=== PATIENT | female | born 1965 | race Caucasian/White ===

== ENCOUNTER 2019-10-22 06:41 | Observation (INO) ==
[2019-10-22] MEDS ORDERED: ASPIRIN PO ONE (06:56)
[2019-10-22] MEDS ORDERED: NITROGLYCERIN TOP ONE (07:23)
--- NOTE | 2019-10-22 07:28 | Diag Imaging Result Doc PS360 ---
CHEST-2 VIEWS - 10/22/2019 INDICATION: cp COMPARISON: 05/23/2017 FINDINGS: Stable densely calcified granulomas in the left upper lobe and left hilum. The lungs are clear. Heart size is normal. No pneumothorax or pleural effusion. IMPRESSION: Negative exam. Electronically signed by Nick Castrejon 10/22/2019 7:25 AM
--- NOTE | 2019-10-22 07:39 | EKG Report ---
Test Performed on : 10/22/2019 06:44:35 AM Test Reason : cp, htn Blood Pressure : / mmHG Vent. Rate : 068 BPM Atrial Rate : 068 BPM P-R Int : 142 ms QRS Dur : 084 ms QT Int : 404 ms P-R-T Axes : 044 002 -01 degrees QTc Int : 429 ms Normal sinus rhythm. Cannot rule out Anterior infarct , age undetermined Abnormal ECG When compared with ECG of 23-MAY-2017 16:32, Nonspecific T wave abnormality, worse in Anterior leads Unconfirmed Result
[2019-10-22 08:43] LABS: BASO# 0.02 X1000 (0.0-0.2); BASO% 0.3 % (0.0-0.8); EOS# 0.15 X1000 (0.0-0.7); HEMATOCRIT 42.5 % (37.0-47.0); HEMOGLOBIN 13.8 g/dL (12.0-16.0); LYMPH% 27.7 % (20.5-51.1); MCH 29.5 PG (27-31); MCHC 32.5 g/dL (33-37); MCV 90.8 FL (81-99); MONO# 0.65 X1000 (0.11-0.59); MONO% 8.6 % (1.7-9.3); MPV 9.7 FL (7.4-10.4); NEUT# 4.66 X1000 (1.4-6.5); NEUT% 61.4 % (42.2-75.2); PLT 328 X1000 (130-400); RBC 4.68 XMIL (4.2-5.4); RDW 12.8 % (11.5-14.5); WBC 7.58 X1000 (4.8-10.8)
[2019-10-22 09:05] LABS: AGAP 10; ALB/GLOB RATIO 1.1; ALKALINE PHOSPHATASE 115 U/L (32-104); BUN 13 mg/dL (8-22); CALCIUM 9.4 mg/dL (8.8-10.2); CHLORIDE 104 mmol/L (98-107); COSMO 281; CREATININE 0.8 mg/dL (0.5-0.9); ESTIMATED GFR > 60; GLUCOSE 96 mg/dL (70-104); GOT 19 U/L (10-30); GPT 13 U/L (10-36); POTASSIUM 4.9 mmol/L (3.5-5.1); SODIUM 141 mmol/L (136-145); TCO2 27 mmol/L (25-35); TOTAL BILIRUBIN 0.35 mg/dL (0.20-1.00); TOTAL PROTEIN 7.5 g/dL (6.3-8.3)
--- NOTE | 2019-10-22 09:08 | PROVIDER DOCUMENTATION ---
HPI-Chest Pain - General Chief Complaint: Chest Pain Stated Complaint: CP BP HIGH Time Seen by Provider: 10/22/19 07:12 Source: patient Allergies/Adverse Reactions: Patient Allergies Allergy/AdvReac Type Severity Reaction Status Date / Time egg Allergy Unknown Verified 10/22/19 07:52 morphine AdvReac Unknown Verified 10/22/19 07:52 - History of Present Illness-CP Nature of Presenting Problem: Patient complains of intermittent substernal CP radiating to left shoulder for the last 2 days, which seems to be associated with elevated blood pressure, mild headaches and some malaise. 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 States used to take blood pressure medicine a few years ago, but quit because she felt she didn't need it. Location: reports: substernal Chest Pain Radiation: reports: shoulders (left) Quality of Pain: reports: aching Severity in ED: moderate Onset/Duration: abrupt, 4-6 hours ago, this morning Timing: still present, improving, intermittent, changing over time Context/Activities at Onset: reports: sleep Modifying Factors: improves with: nothing, other (blood pressure seems to make it worse) Associated Symptoms: reports: diaphoresis, headache, nausea, weakness Nitro Today/Relief: no nitro taken today Aspirin Treatment Today: no aspirin today Prior Chest Pain/Cardiac Workup: reports: non-cardiac Similar Symptoms Previously?: Yes (intermittent for several months) Recently Seen Here or By Another Healthcare Provider: No (sees Dr. Granda) Review of Systems - Adult - REVIEW OF SYSTEMS - ADULT Constitutional: reports: no symptoms reported Eyes: reports: no symptoms reported Ears, Nose, Mouth & Throat: reports: no symptoms reported Cardiovascular: reports: see HPI (slight lower extremity swelling), edema Respiratory: reports: no symptoms reported Gastrointestinal: reports: no symptoms reported Genitourinary: reports: no symptoms reported Musculoskeletal: reports: muscle aches (left leg) Integumentary: reports: no symptoms reported Neurological: reports: no symptoms reported Psychiatric: reports: no symptoms reported Endocrine: reports: no symptoms reported Hematologic/Lymphatic: reports: no symptoms reported Allergic/Immunologic: reports: no symptoms reported All Other Systems: Reviewed and Negative Past History - Adult - PAST MEDICAL HISTORY-ADULT Review of Records: reports: Old Records Reviewed, Nursing Assessment Review, Medications Reviewed, Social history reviewed & non-contributory. Major Childhood Illnesses: reports: denies history Cardiovascular: reports: HTN Respiratory: reports: denies history Gastrointestinal: reports: denies history Obstetrical/Gynecological: reports: denies history Genitourinary: reports: denies history Musculoskeletal: reports: denies history Neurological: reports: denies history Endocrine/Immune: reports: denies history Other Conditions: reports: denies history - PRIOR SURGERIES/PROCEDURES Surgical/Procedure History: reports: cholecystectomy - IMMUNIZATION STATUS Childhood Immunizations: See Nurse Assessment Flu Vaccine: See Nurse Assessment - FAMILY HISTORY Family History: CAD over 55 yo, cancer, PE/DVT (mother) - SOCIAL HISTORY Smoking: non-smoker Substance Use: none/never Alcohol Use Frequency: rarely Living Situation: family Occupation: Procurement Professional Physical Exam-General - PHYSICAL EXAM-ADULT Initial Vital Signs Reviewed: Yes (VSSAF, sl elevated bp) - CONSTITUTIONAL General Appearance: appears well, alert, no apparent distress - EYES Eyes: PERRL/EOMI, pink conjunctivae - HEAD, EARS, NOSE, MOUTH & THROAT HENMT: normocephalic/atraumatic, moist mucous membranes, normal ENT inspection - NECK Neck: non-tender, full range of motion, supple, normal inspection - RESPIRATORY Respiratory: chest non-tender, lungs clear, normal breath sounds, no pleuratic chest pain, no respiratory distress, no accessory muscle use - CARDIOVASCULAR Cardiovascular: normal peripheral pulses, regular rate, rhythm, no edema, no gallop, no JVD, no murmur - GASTROINTESTINAL (ABDOMEN) Abdominal Exam: normal bowel sounds, non tender, soft, no organomegaly, no pulsatile mass - LYMPHATIC Lymphatic: no adenopathy - MUSCULOSKELETAL Back Exam: normal inspection, no CVA tenderness, no vertebral tenderness. negative: decreased range of motion Extremity: normal range of motion, non-tender, normal gait, normal inspection, normal capillary refill, pedal edema (1+) - SKIN Integumentary: normal color, normal turgor, warm/dry - NEUROLOGIC Neurologic: manager sales and marketing II-XII nml as tested, grossly normal, no motor/sensory deficits - PSYCHIATRIC Psych/Mental Status: normal mood/affect, normal thought content, normal thought process, oriented x 3 - HEART Score HEART Score: History: Moderately Suspicious HEART Score: ECG: Non-Specific Repolarization Disturbance/LBBB/PM HEART Score: Age: 45-65 Years HEART Score: Risk Factors for Atherosclerotic Disease: 1 or 2 Risk Factors HEART Score: Troponin: < or = Normal Limit Total HEART Score:: 4 Progress - PLAN OF CARE/RESULTS Progress/Plan/Lab Results: Vital Signs - 8 hr 10/22/19 06:51 10/22/19 07:57 10/22/19 09:07 Temperature 98.0 F Pulse Rate 63 68 73 Respiratory Rate 16 21 18 Blood Pressure 171/83 180/84 183/93 O2 Sat by Pulse Oximetry 99 100 96 Laboratory Results - last 24 hr 10/22/19 10/22/19 10/22/19 08:18 08:18 08:30 WBC RBC Hgb Hct MCV MCH MCHC RDW Std Deviation Plt Count MPV Immature Gran % (Auto) Neut % (Auto) Lymph % (Auto) [place] % (Auto) Eos % (Auto) Baso % (Auto) Immature Gran # (Auto) Neut # (Auto) Lymph # (Auto) [place] # (Auto) Eos # (Auto) Baso # (Auto) PT INR PTT (Actin FS) D-Dimer, Quantitative < 0.27 Sodium Potassium Chloride Carbon Dioxide Anion Gap BUN Creatinine Estimated GFR/1.73 m2 BUN/Creatinine Ratio Glucose Calculated Osmolality Calcium Total Bilirubin AST ALT Alkaline Phosphatase Creatine Kinase 55 Troponin T High Sens 8 Xdb-R-Zhzoilvcsmf Pept Total Protein Albumin Globulin Albumin/Globulin Ratio 10/22/19 10/22/19 10/22/19 08:30 08:30 08:30 WBC 7.58 RBC 4.68 Hgb 13.8 Hct 42.5 MCV 90.8 MCH 29.5 MCHC 32.5 L RDW Std Deviation 12.8 Plt Count 328 MPV 9.7 Immature Gran % (Auto) 0.0 Neut % (Auto) 61.4 Lymph % (Auto) 27.7 Churchill % (Auto) 8.6 Eos % (Auto) 2.0 Baso % (Auto) 0.3 Immature Gran # (Auto) 0.00 Neut # (Auto) 4.66 Lymph # (Auto) 2.10 Churchill # (Auto) 0.65 H Eos # (Auto) 0.15 Baso # (Auto) 0.02 PT INR PTT (Actin FS) D-Dimer, Quantitative Sodium 141 Potassium 4.9 Chloride 104 Carbon Dioxide 27 Anion Gap 10 BUN 13 Creatinine 0.8 Estimated GFR/1.73 m2 > 60 BUN/Creatinine Ratio 16 Glucose 96 Calculated Osmolality 281 Calcium 9.4 Total Bilirubin 0.35 AST 19 ALT 13 Alkaline Phosphatase 115 H Creatine Kinase Troponin T High Sens Qpj-W-Ugijpfuawki Pept 110 Total Protein 7.5 Albumin 4.0 Globulin 3.5 Albumin/Globulin Ratio 1.1 10/22/19 08:30 WBC RBC Hgb Hct MCV MCH MCHC RDW Std Deviation Plt Count MPV Immature Gran % (Auto) Neut % (Auto) Lymph % (Auto) [place] % (Auto) Eos % (Auto) Baso % (Auto) Immature Gran # (Auto) Neut # (Auto) Lymph # (Auto) Churchill # (Auto) Eos # (Auto) Baso # (Auto) PT 12.8 INR 0.95 PTT (Actin FS) 32.3 D-Dimer, Quantitative Sodium Potassium Chloride Carbon Dioxide Anion Gap BUN Creatinine Estimated GFR/1.73 m2 BUN/Creatinine Ratio Glucose Calculated Osmolality Calcium Total Bilirubin AST ALT Alkaline Phosphatase Creatine Kinase Troponin T High Sens Ban-Z-Aufmakklvep Pept Total Protein Albumin Globulin Albumin/Globulin Ratio Orders Category Date Time Status Cardiac Monitoring DIRECTED Care 10/22/19 06:56 Active Nursing- Obtain EKG once Care 10/22/19 09:14 Active Oxygen Therapy- ED Nursing DIRECTED Care 10/22/19 06:56 Active Saline Loc NOW Care 10/22/19 06:56 Active CHEST-2 VIEWS [RAD] Stat Exams 10/22/19 07:06 Completed CBC WITH ELECTRONIC DIFF [HEME] Stat Lab 10/22/19 08:30 Completed CK PROFILE [SP CHEM] Stat Lab 10/22/19 08:18 Completed COMPREHENSIVE METABOLIC PANEL [CHEM] Stat Lab 10/22/19 08:30 Completed D-DIMER [COAG] Stat Lab 10/22/19 08:30 Completed PRO B-NATRIURETIC PEPTIDE Stat Lab 10/22/19 08:30 Completed PROTIME WITH INR [COAG] Stat Lab 10/22/19 08:30 Completed PTT [COAG] Stat Lab 10/22/19 08:30 Completed TROPONIN T HIGH SENSITIVITY Stat Lab 10/22/19 08:18 Completed TROPONIN T HIGH SENSITIVITY Stat Lab 10/22/19 09:14 Uncollected Aspirin Med 10/22/19 06:56 Discontinued 325 mg PO NOW ONE Nitroglycerin Med 10/22/19 07:23 Discontinued 0.5 inch TOP NOW ONE CP/SOB/Palp >45 yrs of Age Stat Oth 10/22/19 06:56 Ordered EKG [EKG] Stat Ther 10/22/19 06:45 Draft EKG [EKG] Stat Ther 10/22/19 09:14 Draft Result Diagrams: 10/22/19 08:30 10/22/19 08:30 - REASSESSMENT Reassessment #1 Time Reassessed: 09:28 Status: improving - EKG 1 Time of EKG reading by physician:: 07:00 EKG Read and Signed by:: Anshul Nielson EKG Interpretation (*Must complete 3 of following elements*): Abnormal Rate: 68 Rhythm: nsr [place]: normal QRS: normal [place] Interval: normal ST Wave: non-specific ST changes (, especially anterolateral leads) Prior EKG Comparison: changes noted (from OLD EKG dates 2016, ST-T wave changes are new in lateral leads) 2 Time of EKG reading by physician:: 09:24 EKG Read and Signed by:: Anshul Nielson EKG Interpretation (*Must complete 3 of following elements*): Abnormal Rate: 73 Rhythm: nsr [place]: normal QRS: normal [place] Interval: normal ST Wave: non-specific ST changes Prior EKG Comparison: unchanged from prior (from first EKG today) - XRAY 1 XRAY Study: Chest Impression: Abnormal, See EMR Report ( CHEST-2 VIEWS - 10/22/2019 INDICATION: c p COMPARISON: 05/23/2017 FINDINGS: Stable densely calcified granulomas in the left upper lobe and left hilum. The lungs are clear. Heart size is normal. No pneumothorax or pleural effusion. IMPRESSION: Negative exam. Electronically signed by Nick Castrejon 10/22/2019 7:25 AM 10/22/19724 Interpreting Physician: Nick Castrejon MD Dictated Date/Time: 10/22/19724 cc: Justus Herrera MD; Sang Granda MD) - CONSULTS/PCP/HOSPITALIST Notification #1 *Consult/PCP/Hospitalist*: Kalee paged at [phone] Time Discussed: : Consult Disposition: Admit Departure - Departure Date of Disposition Decision: 10/22/19 Time of Disposition Decision: 09:29 DIAGNOSIS: Substernal chest pain, Essential hypertension Disposition: ADMITTED INPATIENT 09 Certified Medical Emergency: Emergent Condition: Stable Referrals and Follow-Ups: Sang Granda MD [Primary Care Provider] - - Critical Care Note This patient required my direct & personal management of CC.: No Attestation - Physician/ CAROLIN Attestation Patient care was provided by Advanced Practice Provider:: No The physician spent face to face time with patient:: Yes Advanced Practice Provider documentation review:: Supervising physician onsite a nd consulted in the evaluation and care of this patient. The physician did have a face to face encounter with the patient.
[2019-10-22 09:20] LABS: INR 0.95; PROTIME 12.8 Seconds (11.0-16.0)
[2019-10-22 09:21] LABS: PTT 32.3 Seconds (22.3-41.8)
--- NOTE | 2019-10-22 09:22 | EKG Report ---
Test Performed on : 10/22/2019 09:20:59 AM Test Reason : this is a repeat Blood Pressure : / mmHG Vent. Rate : 073 BPM Atrial Rate : 073 BPM P-R Int : 152 ms QRS Dur : 076 ms QT Int : 406 ms P-R-T Axes : 029 001 -02 degrees QTc Int : 447 ms Normal sinus rhythm. Cannot rule out Anterior infarct (cited on or before 22-OCT-2019) Abnormal ECG When compared with ECG of 22-OCT-2019 06:44, (Unconfirmed) No significant change was found Unconfirmed Result
[2019-10-22] MEDS ORDERED: ZOFRAN IV PRN ×2 (10:31→11:14)
[2019-10-22] MEDS ORDERED: TYLENOL PO PRN (11:14)
--- NOTE | 2019-10-22 13:37 | CARDIOLOGY CONSULTATION ---
DATE: 10/22/2019 HISTORY OF PRESENT ILLNESS: Ms. Garcia is a 54-year-old, lady who had chest discomfort this morning described as sharp, intermittent episodes of chest pain. She came to the emergency room and was admitted. Prior to this, she has had, in the last 1 to 2 weeks, episodes of palpitations not associated with any dizziness or syncope. Other than these episodes of chest pain which she has had today, there is no exertional component of chest pain. Otherwise, she is active. There is no dizziness or syncope. Chest pain is nonradiating. There is no orthopnea or paroxysmal nocturnal dyspnea. She does not have any significant dyspnea on exertion. There is no premature family history of coronary artery disease. She came to the emergency room and she was admitted. Two sets of cardiac enzymes were negative. Electrocardiogram revealed normal sinus rhythm, nonspecific ST-T changes in the anterior leads. PAST MEDICAL HISTORY: Noncontributory. She does not have any hypertension or diabetes. MEDICATIONS: She is not on any home medications. ALLERGIES: She has allergic to egg and morphine. FAMILY HISTORY: There is no premature family history of coronary artery disease. PHYSICAL EXAMINATION: Blood pressure was 170-180 systolic over 84. An inch of nitroglycerin paste was placed. Subsequently, blood pressure down to 128/74. Cardiovascular System: Jugular venous pressure was normal. First and second heart sounds were heard. There was no S3 gallop. Respiratory System: Normal air entry. There were no crepitations or rhonchi. Abdomen: Soft. Nontender. There was no guarding or rigidity. Bowel sounds were heard. Central Nervous System: Alert and was moving all 4 extremities. Examination of extremities revealed no edema. There was mild tenderness on her left calf muscle. ASSESSMENT AND PLAN: Ms. Margarita Garcia is a 54-year-old, lady with no significant past medical history, is a nonsmoker, who had episodes of chest pain this morning at work. Came to the emergency room and was subsequently admitted. In the last 1 to 1-1/2 weeks, she has had episodes of palpitations as well. The last blood pressure check about a month ago, per patient, was normal. However, when she came to the emergency room and was admitted, her blood pressure was elevated. An inch of nitroglycerin paste was placed and blood pressure is normal. LABORATORY EXAMINATION: BMP was unremarkable. CBC was unremarkable. D-dimers were negative. Two sets of cardiac enzymes, troponin T high sensitivity, were negative. PLAN AND RECOMMENDATIONS: 1. Given her palpitations, we will check a thyroid profile. 2. Chest pain. Atypical symptoms with an abnormal EKG, with negative cardiac enzymes. Given this, we will get an echocardiogram to assess cardiac and valvular function. We will also get a Cardiolite stress test to assess for and rule out ischemia. The last stress test in 2015 was unremarkable. We will also check a fasting lipid profile and hemoglobin A1c. 3. She has hypertension which was recorded in the emergency room that could be multifactorial, especially related to anxiety and stress as her blood pressure was normal prior to this. Regardless, we will monitor blood pressure. 4. Given her calf tenderness, D-dimer was negative, we will also get venous Dopplers to rule out any DVT, low likelihood though. Thank you for the consult. We will follow hospital course. cc: MD Sang Lopez MD
[2019-10-22] MEDS: TYLENOL PO PRN ×2 (14:41→20:00)
--- NOTE | 2019-10-22 18:17 | HISTORY AND PHYSICAL ---
CHIEF COMPLAINT: Chest pain. HISTORY OF PRESENT ILLNESS: This 54-year-old white female presented to the emergency room this morning with chest pain. She had gone to work, and her coworkers had noted that her face was red. They checked her blood pressure, and it was very high so they sent her to the emergency room downstairs. She told the emergency room physician that she had been having intermittent sharp fleeting chest pain for "a few days". When I interviewed her, she said it was a couple of weeks. Her , who was in the room stated he had heard nothing of this until she was admitted to the hospital. She states that she had been having some mild shortness of breath. She did not have any palpitations. She denies any reflux symptoms. She stated that she had a really bad night's sleep because this pain woke her up from sleep at approximately 1:00 in the morning and she could not get back to sleep. Every time she would change positions it would hurt more. The patient was admitted with similar pains in 2016, and had a followup echocardiogram and Myoview GXT which was negative. PAST MEDICAL HISTORY: 1. Rheumatic fever age 8. 2. Gastroesophageal reflux disease currently untreated. 3. Morbid obesity. 4. Remote history of hypertension, but no medication for several years. PAST SURGICAL HISTORY: Patient had a cholecystectomy in 1996. SOCIAL HISTORY: The patient was and remarried. She is a nonsmoker for life. Does not use alcohol. FAMILY HISTORY: Significant for congestive heart failure and hypertension with diabetes, but she denies any history of premature coronary disease. REVIEW OF SYSTEMS: Patient denies any weight loss or weight gain. She denies any cough, wheezing, or non exertional shortness of breath. She has had no nausea and vomiting. No change in bowel habits. She has no genitourinary complaints. She has no neurological complaints except for a mild headache, which accompanied her high blood pressure when she was upstairs on the floor of the hospital. She has no other musculoskeletal complaints. PHYSICAL EXAMINATION: VITAL SIGNS: At the time of admission, her pulse rate was 68, respirations were 20, blood pressure 180/84. This later went down to 131/68 several hours later. GENERAL: A morbidly obese white female in no acute distress. HEENT: Sclerae are anicteric. Oral mucosa is adequately hydrated. She has poor dentition with several missing teeth. NECK: Exam is unremarkable. LUNGS: Clear to auscultation bilaterally. CARDIOVASCULAR: Regular without appreciable murmur or gallop. She does have some mild substernal chest wall tenderness at the costosternal junction on both sides at the lower end of her sternum. ABDOMEN: She does not have any epigastric tenderness. She is otherwise benign but protuberant. EXTREMITIES: The patient's right leg is slightly larger than the left below the knee, but it is not grossly edematous nor is it tender. Peripheral pulses are easily palpable. NEUROLOGIC: Cranial nerves are grossly intact. There are no focal neurological deficits. LABORATORY: White count 7.5 and hematocrit 42.5. D-dimer is negative. BUN 13, creatinine 0.8. Initial CK was 54. Troponins have been negative. TSH and free T4 were normal. ASSESSMENT AND PLAN: The patient is admitted for observation. We will get serial cardiac enzymes. I have consulted Dr. Hoang. He has ordered an echocardiogram, venous Doppler's of lower extremities, and a Myoview GXT. cc: Sang Granda MD [facility]
--- NOTE | 2019-10-22 19:49 | ECHO REPORT ---
ORDER DATE: 10/22/2019 INDICATION: Chest pain, hypertension. M-MODE MEASUREMENTS: Left ventricle end diastole: 4.1. Left ventricle end systole: 2.3. Posterior wall: 1.0. Interventricular septum: 1.0. Left atrium: 2.9. Aortic diameter: 2.7. SUMMARY OF 2-DIMENSIONAL IMAGIN. Left ventricular function is normal. Ejection fraction is estimated at 73%. There is no wall motion abnormality noted. 2. The right ventricle appears to be normal. 3. The atria appear to be normal. 4. The aortic valve is normal. Color flow mapping unremarkable. 5. The mitral valve is normal. Color flow mapping unremarkable. 6. Pulse wave Doppler of mitral inflow is normal. 7. Tissue Doppler of septal and lateral mitral annulus averages 7 cm. There is no diastolic dysfunction. 8. The tricuspid valve shows no significant regurgitation. Pulmonary pressure cannot be calculated. 9. The pulmonic valve is normal. Color flow mapping unremarkable. There is a very mild degree of pulmonic regurgitation. 10.There is no pericardial effusion, no mass, and no thrombus. SUMMARY: This study shows: 1. Normal left ventricular systolic function. 2. No diastolic dysfunction. 3. Probably normal pulmonary pressure. 4. No evidence of any significant valvular abnormality. Clinical correlation recommended. cc: MD Effie Enamorado PA Timothy P. Weirich, MD
[2019-10-23] MEDS: PRILOSEC PO SCH ×2 (06:05→06:31)
[2019-10-23] MEDS: TYLENOL PO PRN ×2 (06:31→13:37)
--- NOTE | 2019-10-23 07:22 | EKG Report ---
Test Performed on : 10/23/2019 07:13:39 AM Test Reason : chest pain Blood Pressure : / mmHG Vent. Rate : 069 BPM Atrial Rate : 069 BPM P-R Int : 158 ms QRS Dur : 082 ms QT Int : 384 ms P-R-T Axes : 039 -04 002 degrees QTc Int : 411 ms Normal sinus rhythm. Nonspecific T wave abnormality Abnormal ECG Confirmed by Ronald Gallardo MD ([id number]) on 10/23/2019 8:41:47 AM
[2019-10-23] MEDS ORDERED: ASPIRIN PO SCH (09:00)
--- NOTE | 2019-10-23 14:28 | Diag Imaging Result Document ---
PROCEDURE NAME: MYOCARDIAL PERF SCAN, STR/REST - 10/22/2019 INDICATION: Chest pain. PROCEDURES PERFORMED: 1. Tanvir protocol stress. 2. Two-day stress, rest myocardial perfusion imaging (rest dose 38.7 mCi, stress dose 38.1 mCi). TANVIR PROTOCOL STRESS RESULTS: 1. Baseline EKG showed sinus rhythm. 2. Patient exercised for a total of 4 minutes and 1 second, achieving a peak heart rate of 150. This was 90% of age predicted max. She achieved 5.8 METS and stage 2 of the Tanvir protocol. Exercise capacity was markedly reduced at only 66% of expected. Notably, at the end of stage I, she had a heart rate of 141 beats per minute. 3. Appropriate blood pressure response to exercise. 4. Test was terminated due to fatigue. 5. No anginal complaints occurred during the course of this study. 6. The patient had [address] depression in the inferior and lateral leads. No evidence of significant arrhythmias. PERFUSION IMAGING RESULTS: 1. No evidence of abnormal extracardiac uptake. 2. TID ratio is 1.28 and on review of the splash images, there does appear to be some evidence of transient ischemic dilatation. 3. Perfusion imaging demonstrates a small size, mild intensity, fixed defect in the distal and mid anterior wall with a significant amount of associated breast shadow. Wall motion is intact in the affected area. 4. Normal ejection fraction of 82%. End-diastolic volume 96, end-systolic volume 17. Normal wall motion. cc: MD Effie Lopez PA
[2019-10-23 15:54] VITALS: BP 138/61
--- NOTE | 2019-10-24 17:29 | Extremity Venous Study ---
PROCEDURE NAME: Venous U/S Bilateral Legs - 10/22/2019 REPAIR TECH: Jie. REQUESTING PHYSICIAN: SKY Cobian. INDICATIONS: Edema bilateral, right worse than left with left calf pain. FINDINGS: Deep superficial veins bilateral lower extremities visualized along their course. All vessels were compressible with forward flow. No evidence intraluminal thrombus. There was some deep reflux in the left common femoral vein. IMPRESSION: No deep or superficial venous thrombosis in bilateral lower extremities. cc: MD Effie Krause PA Timothy P. Weirich, MD
--- NOTE | 2019-11-04 22:01 | DISCHARGE SUMMARY ---
ADMISSION DATE: 10/22/2019 DISCHARGE DATE: 10/23/2019 DISCHARGE DIAGNOSIS: Chest pain. HOSPITAL COURSE: The patient was admitted with chest pain which woke her up in the middle of the night. She had a previous workup several years ago, but was still worried about coronary disease. Cardiology was consulted. Multiple lab draws and troponin were all negative. Echocardiogram was read as normal. Myocardial perfusion scan with Eva protocol stress. Ejection fraction was 82% and there was no real reversibility present. Venous Doppler studies revealed no DVT. The patient was discharged home in good condition. She was sent home on some omeprazole for possible reflux related chest pain. She is to follow up within 2 weeks with me. cc: Sang Granda MD
== END 2019-10-23 17:54 | disposition home or self-care (01) ==
LOC: EDIPHOLD 06:41 → ED 06:41 → 1N 12:45
PROVIDERS: ADMIT Internal Medicine; ATTEND Internal Medicine